=== PATIENT | female | born 1990 | race Caucasian/White ===

== ENCOUNTER 2017-11-13 17:03 | Emergency (ER) | payer BC, MEDICAID ==
[2017-11-13] MEDS ORDERED: Ondansetron 4 MG/2 ML SDV IV ONE (17:18)
--- NOTE | 2017-11-13 17:21 | EDM.PDOC ---
ED HPI GENERAL MEDICAL PROBLEM - General Stated Complaint: HEAT STROKE [phone] Time Seen by Provider: 11/13/17 17:10 Source of Information: Reports: Patient History Limitations: Reports: No Limitations - History of Present Illness INITIAL COMMENTS - FREE TEXT/NARRATIVE: This 26 yo female patient reports to the ED due to nausea/vomiting and lightheadedness. The patient reports she has been outside all day. 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 The patient reports she has not been eating or drinking well. The patient reports she has been vomiting frequently this afternoon. The patient reports increased stress and has had a 4 pound weight loss over the past week. Onset: Today Duration: Constant Location: Reports: Generalized Quality: Reports: Other Severity: Moderate Improves with: Reports: None Worsens with: Reports: None Associated Symptoms: Reports: Nausea/Vomiting, Other (dizziness) - Related Data Allergies Allergy/AdvReac Type Severity Reaction Status Date / Time No Known Allergies Allergy Verified 08/31/13 20:16 Home Meds: Home Meds Ibuprofen [Motrin] 800 mg PO Q8H PRN #30 tablet 09/10/14 [Rx] Past Medical History Other Musculoskeletal History: history of fx right wrist Other Dermatologic History: tatoo - Past Surgical History Other HEENT Surgeries/Procedures: Hx Lasik surgery 2014 ED ROS GENERAL - Review of Systems Review Of Systems: ROS reveals no pertinent complaints other than HPI. ED EXAM, GENERAL - Physical Exam Exam: See Below Exam Limited By: No Limitations General Appearance: Alert, WD/WN, Moderate Distress Eye Exam: Bilateral Eye: EOMI, Normal Inspection, PERRL Ears: Normal External Exam, Normal Canal, Hearing Grossly Normal, Normal TMs Nose: Normal Inspection, Normal Mucosa, No Blood Throat/Mouth: Normal Inspection, Normal Lips, Normal Teeth, Normal Gums, Normal Oropharynx, Normal Voice, No Airway Compromise Head: Atraumatic, Normocephalic Neck: Normal Inspection, Supple, Non-Tender, Full Range of Motion Respiratory/Chest: No Respiratory Distress, Lungs Clear, Normal Breath Sounds, No Accessory Muscle Use, Chest Non-Tender Cardiovascular: Normal Peripheral Pulses, Regular Rate, Rhythm, No Edema, No Gallop, No JVD, No Murmur, No Rub GI/Abdominal: Normal Bowel Sounds, Soft, Non-Tender, No Organomegaly, No Distention, No Abnormal Bruit, No Mass (Female) Exam: Deferred Rectal (Female) Exam: Deferred Back Exam: Normal Inspection, Full Range of Motion, NT Extremities: Normal Inspection, Normal Range of Motion, Non-Tender, Normal Capillary Refill, No Pedal Edema Neurological: Alert, Oriented, CN II-XII Intact, Normal Cognition, Normal Gait, Normal Reflexes, No Motor/Sensory Deficits Psychiatric: Normal Affect, Normal Mood Skin Exam: Warm, Dry, Intact, Normal Color, No Rash Lymphatic: No Adenopathy Course - Vital Signs Last Recorded V/S: Last Vital Signs Temp 36.6 C 11/13/17 17:04 Pulse 76 11/13/17 17:04 Resp 16 11/13/17 17:04 BP 111/69 11/13/17 17:04 Pulse Ox 100 11/13/17 17:04 Orthostatic Blood Pressure [ 109/71 Standing] Orthostatic Blood Pressure [ 102/69 Sitting] Orthostatic Blood Pressure [ 108/61 Supine] - Orders/Labs/Meds Orders: Active Orders 24 hr Category Date Time Status DRUG SCREEN URINE BIORAD [URCHEM] Stat Lab 11/13/17 18:55 Ordered HCG QUALITATIVE,URINE [URCHEM] Stat Lab 11/13/17 18:55 Ordered UA W/MICROSCOPIC [URIN] Stat Lab 11/13/17 18:55 Ordered Labs: Laboratory Tests 11/13/17 11/13/17 11/13/17 Range/Units 17:18 17:18 18:55 WBC 9.0 (5.0-10.0) 10^3/uL RBC 4.24 (4.2-5.4) 10^6/uL Hgb 13.3 (12.0-16.0) g/dL Hct 38.1 (37.0-47.0) % MCV 89.9 D (80-100) fL MCH 31.4 (27.0-34.0) pg MCHC 34.9 (33.0-35.0) g/dL Plt Count 215 (150-450) 10^3/uL Neut % (Auto) 56.3 (42.2-75.2) % Lymph % (Auto) 35.6 (20.5-50.1) % [place] % (Auto) 5.2 (2-8) % Eos % (Auto) 2.5 (1.0-3.0) % Baso % (Auto) 0.4 (0.0-1.0) % Sodium 138 (135-145) mmol/L Potassium 3.2 L (3.6-5.0) mmol/L Chloride 104 (101-111) mmol/L Carbon Dioxide 22.0 (21.0-31.0) mmol/L Anion Gap 15.2 BUN 12 (7-18) mg/dL Creatinine 0.7 (0.6-1.3) mg/dL Est Cr Clr Drug Dosing 78.82 mL/min Estimated GFR (MDRD) > 60 BUN/Creatinine Ratio 17.14 Glucose 115 H (74-105) mg/dL Calcium 8.9 (8.4-10.2) mg/dl Total Bilirubin 1.1 H (0.2-1.0) mg/dL AST 21 (10-42) IU/L ALT 14 (10-60) IU/L Alkaline Phosphatase 40 L (42-121) IU/L Total Protein 7.0 (6.7-8.2) g/dl Albumin 4.5 (3.2-5.5) g/dl Globulin 2.5 Albumin/Globulin Ratio 1.80 Urine Color Yellow (YELLOW) Urine Appearance Clear (CLEAR) Urine pH 7.0 (5.0-9.0) Ur Specific [place] 1.020 (1.005-1.030) Urine Protein Trace H (NEGATIVE) Urine Glucose (UA) Negative (NEGATIVE) Urine Ketones 80 H (NEGATIVE) Urine Occult Blood Negative (NEGATIVE) Urine Nitrite Negative (NEGATIVE) Urine Bilirubin Small H (NEGATIVE) Urine Urobilinogen 1.0 (0.2-1.0) mg/dL Ur Leukocyte Esterase Trace H (NEGATIVE) Urine HCG, Qual Urine Opiates Screen (NEGATIVE) Ur Oxycodone Screen (NEGATIVE) Urine Methadone Screen (NEGATIVE) Ur Barbiturates Screen (NEGATIVE) U Tricyclic Antidepress (NEGATIVE) Ur Phencyclidine Scrn (NEGATIVE) Ur Amphetamine Screen (NEGATIVE) U Methamphetamines Scrn (NEGATIVE) Urine MDMA Screen (NEGATIVE) U Benzodiazepines Scrn (NEGATIVE) Urine Cocaine Screen (NEGATIVE) U Marijuana (THC) Screen (NEGATIVE) 11/13/17 11/13/17 Range/Units 18:55 18:55 WBC (5.0-10.0) 10^3/uL RBC (4.2-5.4) 10^6/uL Hgb (12.0-16.0) g/dL Hct (37.0-47.0) % MCV (80-100) fL MCH (27.0-34.0) pg MCHC (33.0-35.0) g/dL Plt Count (150-450) 10^3/uL Neut % (Auto) (42.2-75.2) % Lymph % (Auto) (20.5-50.1) % [place] % (Auto) (2-8) % Eos % (Auto) (1.0-3.0) % Baso % (Auto) (0.0-1.0) % Sodium (135-145) mmol/L Potassium (3.6-5.0) mmol/L Chloride (101-111) mmol/L Carbon Dioxide (21.0-31.0) mmol/L Anion Gap BUN (7-18) mg/dL Creatinine (0.6-1.3) mg/dL Est Cr Clr Drug Dosing mL/min Estimated GFR (MDRD) BUN/Creatinine Ratio Glucose (74-105) mg/dL Calcium (8.4-10.2) mg/dl Total Bilirubin (0.2-1.0) mg/dL AST (10-42) IU/L ALT (10-60) IU/L Alkaline Phosphatase (42-121) IU/L Total Protein (6.7-8.2) g/dl Albumin (3.2-5.5) g/dl Globulin Albumin/Globulin Ratio Urine Color (YELLOW) Urine Appearance (CLEAR) Urine pH (5.0-9.0) Ur Specific [place] (1.005-1.030) Urine Protein (NEGATIVE) Urine Glucose (UA) (NEGATIVE) Urine Ketones (NEGATIVE) Urine Occult Blood (NEGATIVE) Urine Nitrite (NEGATIVE) Urine Bilirubin (NEGATIVE) Urine Urobilinogen (0.2-1.0) mg/dL Ur Leukocyte Esterase (NEGATIVE) Urine HCG, Qual Negative Urine Opiates Screen Negative (NEGATIVE) Ur Oxycodone Screen Negative (NEGATIVE) Urine Methadone Screen Negative (NEGATIVE) Ur Barbiturates Screen Negative (NEGATIVE) U Tricyclic Antidepress Negative (NEGATIVE) Ur Phencyclidine Scrn Negative (NEGATIVE) Ur Amphetamine Screen Negative (NEGATIVE) U Methamphetamines Scrn Negative (NEGATIVE) Urine MDMA Screen Negative (NEGATIVE) U Benzodiazepines Scrn Negative (NEGATIVE) Urine Cocaine Screen Negative (NEGATIVE) U Marijuana (THC) Screen Negative (NEGATIVE) Meds: Medications Discontinued Medications Generic Name Dose Route Start Last Admin Trade Name Katey PRN Reason Stop Dose Admin Sodium Chloride 1,000 mls @ 999 mls/hr 11/13/17 17:13 11/13/17 18:12 Normal Saline IV 11/13/17 18:13 Infused .BOLUS ONE Infusion Potassium Chloride 10 meq/ 100 mls @ 100 mls/hr 11/13/17 18:05 11/13/17 18:17 Premix IV 11/13/17 19:04 100 mls/hr ONETIME ONE Administration Sodium Chloride 1,000 mls @ 999 mls/hr 11/13/17 18:05 11/13/17 18:12 Normal Saline IV 11/13/17 19:05 999 mls/hr .BOLUS ONE Administration Ondansetron HCl 4 mg 11/13/17 17:18 11/13/17 17:40 Zofran IV 11/13/17 17:19 4 mg ONETIME ONE Administration Departure - Departure Time of Disposition: 19:39 Disposition: Home, Self-Care 01 Condition: Fair Clinical Impression: Hypokalemia, Dehydration Heat exhaustion Qualifiers: Encounter type: initial encounter Qualified Code(s): T67.5XXA - Heat exhaustion , unspecified, initial encounter - Discharge Information *PRESCRIPTION DRUG MONITORING PROGRAM REVIEWED*: Not Applicable *COPY OF PRESCRIPTION DRUG MONITORING REPORT IN PATIENT DIDI: Not Applicable Instructions: Hypokalemia, Dehydration, Adult, [id number] Referrals: Antonella Alvarez MD [Primary Care Provider] - Care Plan Goals: The patient was advised of the examination and lab results during the visit. The patient was given 2 liters of IV fluid and IV Potassium while in the ED. The patient was encouraged to get some additional rest. If the patient has any additional symptoms or concerns, the patient should follow-up with her primary care facility or return to the emergency department. - My Orders Last 24 Hours: My Active Orders 11/13/17 18:55 DRUG SCREEN URINE BIORAD [URCHEM] Stat HCG QUALITATIVE,URINE [URCHEM] Stat UA W/MICROSCOPIC [URIN] Stat - Assessment/Plan Last 24 Hours: My Active Orders 11/13/17 18:55 DRUG SCREEN URINE BIORAD [URCHEM] Stat HCG QUALITATIVE,URINE [URCHEM] Stat UA W/MICROSCOPIC [URIN] Stat
[2017-11-13] MEDS: Sodium Chloride 0.9% 1,000 ML IV ONE ×2 (17:40→18:12)
[2017-11-13 17:53] LABS: ANION GAP 15.2; CHLORIDE,CL 104 mmol/L (101-111); SODIUM,NA 138 mmol/L (135-145)
[2017-11-13] MEDS ORDERED: Sodium Chloride 0.9% 1,000 ML IV ONE (18:05)
[2017-11-13] MEDS ORDERED: Potassium Chloride 10 MEQ in Premix Bag 1 BAG IV ONE (18:05)
[2017-11-13 19:43] VITALS: BP 104/64
== END 2017-11-13 19:48 | disposition home or self-care (01) ==
LOC: DL.ED 17:03
DX: T67.5XXA Heat exhaustion, unspecified, initial encounter (principal); E87.6 Hypokalemia; E86.0 Dehydration
CPT/HCPCS: 36415; 80053; 80305; 81001; 81025; 85025; 96365; 96375; 99284; J2405; J3480; J7030

== ENCOUNTER 2020-03-11 13:09 | Inpatient (IN) | payer MEDICAID ==
[2020-03-11] MEDS ORDERED: Carboprost Tromethamine 250 MCG/1 ML Amp IM PRN (13:42)
[2020-03-11] MEDS ORDERED: Ondansetron 4 MG/2 ML SDV IVPUSH PRN ×2 (13:42→14:31)
[2020-03-11] MEDS ORDERED: Lactated Ringers 1,000 ML IV ONE (13:42)
[2020-03-11] MEDS ORDERED: Sodium Chloride 0.9% 10 ML Syringe FLUSH PRN (13:42)
[2020-03-11] MEDS ORDERED: Misoprostol 400 MCG (4 X 100 MCG TAB) RECTAL PRN (13:42)
[2020-03-11] MEDS ORDERED: Acetaminophen 325 MG Tab PO PRN (13:42)
[2020-03-11] MEDS ORDERED: Methylergonovine 0.2 MG/1 ML Amp IM PRN (13:42)
[2020-03-11] MEDS ORDERED: Lidocaine 1% 30 ML SDV INJECT PRN (13:42)
[2020-03-11] MEDS ORDERED: Tranexamic Acid 1,000 MG in Sodium Chloride 0.9% 100 ML IV PRN (13:42)
[2020-03-11] MEDS ORDERED: Lactated Ringers 1,000 ML IV SCH (13:45)
[2020-03-11] MEDS ORDERED: Oxytocin/Normal Saline 30 UNIT/500 ML BAG IV SCH (13:45)
[2020-03-11] MEDS ORDERED: fentaNYL 100 MCG/2 ML SDV IVPUSH PRN (14:30)
[2020-03-11] MEDS ORDERED: Promethazine 25 MG/ML SDV IM PRN (14:31)
[2020-03-11] MEDS ORDERED: Naloxone 2 MG/2 ML Syringe IVPUSH PRN (14:31)
[2020-03-11] MEDS ORDERED: ePHEDrine 50 MG/ML SDV IVPUSH PRN (14:31)
[2020-03-11] MEDS ORDERED: Lactated Ringers 500 ML IV SCH ×2 (14:45)
[2020-03-11] MEDS ORDERED: Sodium Chloride 0.9% 1,000 ML IV SCH (14:45)
[2020-03-11] MEDS ORDERED: Penicillin G Potassium 5 MILLUNITS in Sodium Chloride 0.9% 100 ML IV ONE (15:00)
[2020-03-11] MEDS ORDERED: Ibuprofen 800 MG Tab PO PRN (15:42)
[2020-03-11] MEDS ORDERED: Benzocaine/Menthol 20%-0.5% Spray 56 GM Canister TOP PRN (15:42)
[2020-03-11] MEDS ORDERED: Penicillin G Potassium 3 MILLUNITS in Sodium Chloride 0.9% 100 ML IV SCH (19:00)
[2020-03-11 20:16] VITALS: BP 131/77; PULSE 77
--- NOTE | 2020-03-12 00:40 | DEL ---
DATE: 03/11/2020 DELIVERY TIME: 1435. PREPROCEDURE DIAGNOSES: 1. 38-6/7 weeks' intrauterine based on last menstrual period. 2. 5, para 4-0-0-4. 3. History of maternal group B Streptococcus affecting , group B Streptococcus negative at this , and the patient refused penicillin prophylaxis. 4. History of herpes, currently on Valtrex prophylaxis. 5. Abnormal glucose tolerance test at 1 hour, normal 3-hour test. 6. Spotting in the first trimester. 7. Constipation of . 8. Blood type A positive, group B Streptococcus negative, rubella immune. POSTPROCEDURE DIAGNOSES: 1. 38-6/7 weeks' intrauterine based on last menstrual period. 2. 5, para 5-0-0-5. 3. Status post uncomplicated spontaneous vaginal delivery, precipitous. 4. History of maternal group B Streptococcus affecting , group B Streptococcus negative at this , and the patient refused penicillin prophylaxis. 5. History of herpes, currently on Valtrex prophylaxis. 6. Abnormal glucose tolerance test at 1 hour, normal 3-hour test. 7. Spotting in the first trimester. 8. Constipation of . 9. Blood type A positive, group B Streptococcus negative, rubella immune. 10. Post precipitious vaginal delivery of a viable male . BRIEF HISTORY: A 29-year-old female with the above-listed diagnoses, presented to the hospital after onset of labor at home. Estimated stage I to 3-1/2 hours. The patient had been in the tub and experiencing symptoms of back labor. She decided she wanted an intrathecal, so while the patient had gotten over to the bed, her bag of water broke, and the baby was then with additional delivery details as below. See admission history and physical for all prior history details. DETAILS: The patient was lying in a somewhat diagonal position in the bed and precipitously delivered the baby with nurses in attendance. Baby had good instant spontaneous cry. I presented to the room while the baby was still in the nurse's arms and we had a delay of cord clamping per the patient's request. Three-vessel umbilical cord was then doubly clamped and cut by the baby's father. Then, baby taken to the warmer simply so we could get mother adjusted in the bed to some dry sheets and bedding before we put baby on her chest. Cord blood sample was obtained and placenta delivered by gentle cord traction and concomitant uterine massage, inspected, and intact. Labia and vagina were inspected and there were some very superficial abrasions, but nothing that required sutures and Mom and baby were doing well. COMPLICATIONS: None. Precipitous delivery with nurses in attendance. However, no problems discovered. ESTIMATED BLOOD LOSS: 200 mL. FINDINGS: Weight 3295g. APGARs 8 & 9. Length 19.5in. DISPOSITION: Mother and baby to stay in the delivery room to initiate breast- feeding. [facility] /[id number] MTDD
--- NOTE | 2020-03-12 01:12 | HP ---
CHIEF COMPLAINT: Contractions. HISTORY OF PRESENT ILLNESS: A 29-year-old female presented to the hospital reporting increased force and frequency of contractions. No leakage of fluid or vaginal bleeding. Good movement. No symptoms of preeclampsia. Reporting contractions had started around 11 o'clock and she waited until she was certain it was labor before coming in. Nurse checked her and reported she was 4.5 cm dilated at presentation and she was admitted. HISTORY: She is 38 weeks' 6 days' gestation by last menstrual period. anatomy ultrasound was normal as was followup growth ultrasound. remarkable for history of herpes and she was placed on Valtrex for prophylaxis and did not have any outbreaks. She had an abnormal 1-hour glucose tolerance test of 164, but passed her 3-hour test with values of 76, 105, 109, and 98. She had some constipation of and a history of a baby affected by late onset group B strep and declined having prophylaxis provided this . The patient had excellent care. Blood type is A positive. Antibody screen negative. Rubella immune. Syphilis serology nonreactive. Urine culture negative. Hepatitis B negative. HIV negative. Gonorrhea and chlamydia negative. TSH normal at 1.34. Hepatitis C negative. Wet prep positive for clue cells and treated. Pap smear was abnormal showing ASCUS cannot exclude high grade. Colposcopy without biopsy was performed and showed features consistent with low-grade intraepithelial lesion. The high-risk HPV was positive for genotype 16. Group B strep test was negative. PAST MEDICAL HISTORY: Chickenpox, herpes type 1, PTSD, scoliosis. PAST SURGICAL HISTORY: LASIK eye surgery and wisdom teeth extraction. FAMILY HISTORY: Paternal grandfather with a GI cancer. Mother with skin cancer and rheumatoid arthritis. Father with skin cancer. Maternal grandmother with rheumatoid arthritis. Paternal grandmother had a stroke in her late 80s. Maternal aunt has gestational diabetes. Paternal aunt and several aunts on that side of the family with breast cancer. Negative history for defects, anesthesia problems, and bleeding problems. SOCIAL HISTORY: The patient is , currently in a new relationship, and is having a baby with her new partner. She has been quarantining at home with her children and has been home schooling this year, so she is a full-time mother. Her boyfriend is living in [place], but planning on moving closer to [facility]. This will be his 1st child. MEDICATIONS: vitamin 1 daily, probiotics 1 daily, Valtrex 500 mg p.o. b.i.d. ALLERGIES: Seasonal only. REVIEW OF SYSTEMS: Pertinent positives and negatives per the HPI. Otherwise, all systems negative. PHYSICAL EXAMINATION: General: This is a pleasant 29-year-old female who appears her stated age. Vital Signs: Blood pressure 133/76, pulse 91, temperature 98, respiratory rate of 18. HEENT: Grossly unremarkable. Heart: Regular without murmur. Lungs: Clear to auscultation bilaterally. Abdomen: Gravid, soft, nontender. Palpates firm with contractions. [place] shows contractions every 4 minutes initially, quickly progressing to about every 2 to 3. heart tones 130 beats per minute at baseline. Moderate [id number] variability. Accelerations are noted. Category 1 tracing. Genitourinary: Cervical exam per nurses, 3 to 4 cm dilated, and that was just after 1:30 in the afternoon. Extremities: No edema, erythema, or tenderness noted. Skin: No significant lesions noted. Neurological: No focal deficits. ASSESSMENT: 1. 38-6/7 weeks' intrauterine . 2. 5, para 4-0-0-4. 3. History of late-onset group B Streptococcus in a prior delivery. Declining treatment with prophylactic penicillin during this labor. History of genital herpes, currently on prophylaxis. 4. History of abnormal 1-hour glucose test, but passed her 3-hour test. 5. History of spotting in the first trimester. 6. History of constipation in . PLAN: The patient has been admitted to the hospital as a labor and delivery patient. We will try to minimize vaginal exams and delay rupture of membranes if possible to decrease the amount of time baby is potentially exposed to group B strep. She understands the risk of not providing prophylactic antibiotics and maintains that this is the best decision for her and her unborn child. She is requesting early discharge as soon as possible after delivery and lives only a couple of houses away from the hospital. She is a very reliable patient who can bring her baby back for the 24-hour testing and evaluation. She is quite health conscious, and it is her 5th child, so she certainly knows how to take care of a and concerning signs and symptoms to look for. All of her questions have been answered. [facility] /[id number]
--- NOTE | 2020-03-12 01:31 | DISCH ---
ADMISSION DIAGNOSES: 1. 38-6/7 weeks' intrauterine based on last menstrual period. 2. 5, para 4-0-0-4. 3. History of late-onset group B Streptococcus in a prior delivered baby, currently refusing prophylactic treatment with penicillin. 4. History of genital herpes. No active lesions and on prophylactic Valtrex. 5. Abnormal 1-hour glucose tolerance test, but normal 3-hour test. 6. Spotting in the first trimester of . 7. Constipation of . 8. Blood type A positive and rubella immune. DISCHARGE DIAGNOSES: 1. 38-6/7 weeks' intrauterine based on last menstrual period. 2. 5, now para 5-0-0-5. 3. Status post uncomplicated precipitous vaginal delivery. 4. History of late-onset group B Streptococcus in a prior delivered baby, currently refusing prophylactic treatment with penicillin. 5. History of genital herpes. No active lesions and on prophylactic Valtrex. 6. Abnormal 1-hour glucose tolerance test, but normal 3-hour test. 7. Spotting in the first trimester of . 8. Constipation of . 9. Blood type A positive and rubella immune. BRIEF HISTORY: A 29-year-old female with the above-listed diagnoses, presented to the hospital in active labor. She was in the tub and feeling severe pain and requesting intrathecal, which she had never had for her prior deliveries. After getting her to the bed, she was sitting up, her bag of water broke, and then the baby was , so baby was delivered precipitously by nurse in attendance. I arrived in the room shortly thereafter, and after delay, cord clamping addressed. Baby and mother evaluated and situated. Placenta delivered. They had been doing well since that time. Mother is . She is requesting early discharge. Residence is only about 3 houses away from the hospital. It is her 5th child, and she is a very conscientious, reliable mother, who will bring the baby in if there are any concerns or issues. She is also familiar with normal and signs and symptoms that would signal concern. HOSPITAL COURSE: After delivery has been unremarkable. Bleeding has been appropriate. She is her baby, feels like her milk has not come in yet, but is comfortable with understanding that the baby only needs really the colostrum at this point in time and to continue to monitor for signs that he is maintaining adequate hydration. DISCHARGE CONDITION: Good. PHYSICAL EXAMINATION: Vital Signs: Temperature is 98.1, pulse 77, blood pressure 131/77, respiratory rate of 18. Heart: Regular without murmur. Lungs: Clear to auscultation bilaterally. Abdomen: Soft, nontender. Fundus firm below the umbilicus. Extremities: No edema, erythema, or tenderness noted. LABORATORY DATA: Admission hemoglobin 13.7, platelets 163. DISPOSITION: Home with family. MEDICATIONS: [id number] ibuprofen, Tylenol as needed for pain or discomfort. Otherwise, continue her vitamins and probiotic as before. INSTRUCTIONS: Normal postvaginal delivery instructions for mother were provided. She understands to return if she has any heavy bleeding, severe pain, develops fever, foul-smelling drainage, discharge, has any other concerns or problems. [facility] /[id number]
== END 2020-03-11 21:40 | disposition home or self-care (01) | DRG 806 ==
LOC: DL.OBCHECK 13:09 → DL.OB 13:42 → OBSVTOIN 14:35
PROVIDERS: ADMIT Family Medicine; ATTEND Family Medicine
PROC: 10E0XZZ Delivery of Products of Conception, External Approach (ICD-10-PCS; principal; 2020-03-11)
DX: O99.62 Diseases of the digestive system complicating childbirth (principal); O98.32 Other infections with a predominantly sexual mode of transmission complicating childbirth; Z37.0 Single live birth; K92.89 Other specified diseases of the digestive system; Z3A.38 38 weeks gestation of pregnancy; Z20.828 Contact with and (suspected) exposure to other viral communicable diseases
CPT/HCPCS: 36415; 59409; 85027; J2590; J7120; U0002

== ENCOUNTER 2024-05-30 22:19 | Inpatient (IN) | payer BC ==
[2024-05-30] MEDS ORDERED: Tranexamic Acid 1,000 MG in Sodium Chloride 0.9% 100 ML IV PRN (22:23)
[2024-05-30] MEDS ORDERED: Methylergonovine 0.2 MG/1 ML Amp IM PRN (22:23)
[2024-05-30] MEDS ORDERED: Carboprost Tromethamine 250 MCG/1 ML Amp IM PRN (22:23)
[2024-05-30] MEDS ORDERED: Acetaminophen 325 MG Tab PO PRN (22:23)
[2024-05-30] MEDS ORDERED: Lidocaine 1% 30 ML SDV INJECT ONE (22:23)
[2024-05-30] MEDS ORDERED: Ondansetron 4 MG/2 ML SDV IVPUSH PRN (22:23)
[2024-05-30] MEDS ORDERED: Sodium Chloride 0.9% 10 ML Syringe FLUSH PRN (22:23)
[2024-05-30] MEDS ORDERED: Lactated Ringers 1,000 ML IV ONE (22:23)
[2024-05-30 23:00] LABS: HEMATOCRIT 34.3 % (37.0-47.0); HEMOGLOBIN 11.6 g/dL (12.0-16.0); MEAN CORPUSCULAR HEMOGLOBIN 31.2 pg (27.0-34.0); MEAN CORPUSCULAR HGB CONC 33.8 g/dL (33.0-35.0); MEAN CORPUSCULAR VOLUME 92.2 fL (80-100); RED BLOOD CELL COUNT 3.72 10^6/uL (4.2-5.4); WHITE BLOOD CELL COUNT,WBC 12.6 10^3/uL (5.0-10.0)
[2024-05-31] MEDS: Oxytocin/Lactated Ringers 30 UNIT/500 ML BAG IV SCH (02:30)
[2024-05-31] MEDS: Lactated Ringers 1,000 ML IV SCH (02:31)
[2024-05-31] MEDS ORDERED: Witch Hazel Medicated Pads 100/Jar TOP PRN (02:43)
[2024-05-31] MEDS ORDERED: Acetaminophen 325 MG Tab PO PRN (02:43)
[2024-05-31] MEDS ORDERED: Carboprost Tromethamine 250 MCG/1 ML Amp IM PRN (02:43)
[2024-05-31] MEDS ORDERED: Misoprostol 100 MCG Tab RECTAL PRN (02:43)
[2024-05-31] MEDS ORDERED: Oxytocin 10 Units/1 ML SDV IM PRN (02:43)
[2024-05-31] MEDS ORDERED: Benzocaine/Menthol 20%-0.5% Spray 78 GM Cannister TOP PRN (02:43)
[2024-05-31] MEDS ORDERED: Hydrocortisone 2.5% Crm 30 GM Tube TOP PRN (02:43)
[2024-05-31] MEDS ORDERED: Docusate Sodium 100 MG Cap PO PRN (02:43)
[2024-05-31] MEDS ORDERED: Bisacodyl 10 MG Supp RECTAL PRN (02:43)
[2024-05-31] MEDS ORDERED: Simethicone 80 MG Tab.Chew PO PRN (02:43)
[2024-05-31] MEDS ORDERED: Tranexamic Acid 1,000 MG in Sodium Chloride 0.9% 100 ML IV PRN (02:43)
[2024-05-31] MEDS: Ibuprofen 800 MG Tab PO SCH (03:41)
[2024-05-31] MEDS ORDERED: Lidocaine 1% 4 ML ONE (06:41)
[2024-05-31] MEDS: Prenatal Multivitamin with Calcium/Folic Acid/Iron Tab PO SCH (09:17)
[2024-06-01 10:59] VITALS: BP 99/60; PULSE 109
== END 2024-06-01 10:30 | disposition home or self-care (01) | DRG 560 ==
LOC: DL.OB 22:19 → OBSVTOIN 05-31 02:30
PROVIDERS: ADMIT Family Medicine; ATTEND Family Medicine
PROC: 10E0XZZ Delivery of Products of Conception, External Approach (ICD-10-PCS; principal; 2024-05-31)
PROC: 10907ZC Drainage of Amniotic Fluid, Therapeutic from Products of Conception, Via Natural or Artificial Opening (ICD-10-PCS; 2024-05-31)
DX: O98.32 Other infections with a predominantly sexual mode of transmission complicating childbirth (principal); Z3A.39 39 weeks gestation of pregnancy; Z37.0 Single live birth; F43.10 Post-traumatic stress disorder, unspecified; Z98.890 Other specified postprocedural states; O99.344 Other mental disorders complicating childbirth; A60.09 Herpesviral infection of other urogenital tract
CPT/HCPCS: 36415; 59409; 85027; A9270-GY; J2590; J7120